=== PATIENT | female | born 1970 | race Caucasian/White ===

== ENCOUNTER 2018-03-13 05:19 | Observation (INO) ==
[2018-03-13] MEDS ORDERED: *HR* FentaNYL (PF) 100 MCG/2 ML VIAL ONE ×2 (06:13→07:58)
[2018-03-13] MEDS ORDERED: *HR* Propofol 200 MG/20 ML VIAL IVP ONE (06:13)
[2018-03-13] MEDS ORDERED: *HR* Midazolam HCl 2 MG/2 ML VIAL ONE (06:13)
[2018-03-13] MEDS ORDERED: *HR* Rocuronium Bromide 50 MG/5 ML VIAL ONE (06:17)
[2018-03-13] MEDS ORDERED: *HR* Succinylcholine 200 MG/10 ML VIAL IVP ONE (06:17)
[2018-03-13] MEDS ORDERED: Lidocaine -MPF 2% 2 ML VIAL ONE (06:17)
[2018-03-13] MEDS ORDERED: Albuterol 2.5 MG/3 ML NEBULIZER ONE (06:21)
[2018-03-13] MEDS ORDERED: Lidocaine -MPF 4% 5 ML AMPUL ONE (07:07)
[2018-03-13] MEDS ORDERED: Ondansetron 4 MG/2 ML VIAL ONE (07:56)
[2018-03-13] MEDS ORDERED: Dexamethasone 4 MG/ML VIAL ONE (07:56)
[2018-03-13] MEDS ORDERED: Neostigmine Methylsulfate 3 MG/3 ML SYRINGE ONE (08:04)
[2018-03-13] MEDS ORDERED: *HR* Morphine 10 MG/ML VIAL ONE (08:42)
[2018-03-13] MEDS ORDERED: *HR* OxyCODONE/APAP 7.5/325 TABLET PO PRN (12:00)
[2018-03-13] MEDS ORDERED: Ondansetron 4 MG/2 ML VIAL IVP PRN (12:00)
[2018-03-13] MEDS ORDERED: 0.9 % Sodium Chloride 1,000 ML IVC SCH (13:00)
--- NOTE | 2018-03-13 13:32 | Operative Note ---
Date of procedure: 03/13/18 Pre-op diagnosis: acute appendicitis Post-op diagnosis: same Procedure: Laparoscopic appendectomy [facility] Surgeon: Richie Nascimento Was there an travel assistant present: No Estimated blood loss (cc): 25 Specimen: appendix Condition: stable Disposition: PACU Procedure in Detail: Date of surgery: 03/13/18 After properly identifying the patient, the patient was brought to the operating room and placed in the supine position. After proper IV sedation was achieved followed by general endotracheal intubation, the patient's abdomen was prepped and draped in normal sterile fashion. A timeout was performed noting the patient's name and type of procedure to be performed. A 11 blade scalpel was used to make an effort umbilical incision down to the level of the rectus fascia. Once the rectus fascia was incised and the abdomen entered a 12 mm port was placed to the incision and the abdomen was insufflated with carbon dioxide. A laparoscopic camera was placed through the port which showed no injury to the intra-abdominal organs upon entry. A suprapubic 5 mm port in the left lower quadrant 5 mm port were then placed under direct camera visualization. The patient was placed in a Trendelenburg position with the left side down and the right lower quadrant was examined. The appendix appeared to be partially perforated with some exudate which was immediately suctioned. There was some significant inflammation near the right fallopian tube. This was bluntly dissected from its normal attachment and the appendix and cecum were retracted superiorly. There was significant inflammation CONSISTENT with perforated acute appendicitis. Portions of the epiploic tissue at the level of the cecum near the appendix were dissected to allow for visualization of the base of the appendix however the base of the appendix at the level or origin of the cecum appeared to have been obliterated. The appendix was then transected by transection across the mesentery at at the level of the appendix with a laparoscopic ELSY stapler. Because of an inability to find the true opening of the appendix but knowing where the base of the appendix was (the general area) a laparoscopic ELSY stapler was used to transect across the distal aspect of the cecum in this region. Portions of the cecum and the remnant of the appendix and epiploic tissue were then removed from the abdomen via an Endobag. The right lower quadrant and pelvis were copiously irrigated with normal saline solution and reinspection demonstrated presence of the fibrinous material along or near the level of the fallopian tube but no evidence of active bleeding. The staple line was intact. The decision was made to go ahead and conclude this surgical procedure by removing all ports after the abdomen was desufflated. The rectus fascia for the subumbilical incision was reapproximated with a 0 Vicryl suture. The subcutaneous tissue was reapproximated with a 3-0 Vicryl suture and the epidermal and dermal layers for the remaining incisions were closed with 4-0 Monocryl sutures. Needle, sponge, and instrument counts were correct 2 and the incisions were covered with Steri-Strips and Band-Aids. The patient was aroused from IV sedation, extubated in the operating room without complication, and transported to the recovery room stable condition.
[2018-03-13] MEDS: MORPHINE SUL Oral CONC 10 MG/0.5 ML ORAL.SYG SL PRN (14:40)
[2018-03-13] MEDS: 0.9 % Sodium Chloride 1,000 ML IVC SCH ×2 (14:44→19:45)
[2018-03-13] MEDS: Piperacillin/Tazobactam 3.375 GM in 0.9 % Sodium Chloride Mini Bag 100 ML IVPB SCH ×2 (14:44→20:44)
[2018-03-13] MEDS: Pantoprazole 40 MG VIAL IVP SCH (15:41)
[2018-03-13] MEDS: Ketorolac 30 MG/ML VIAL IVP SCH (18:41)
[2018-03-14] MEDS: Ketorolac 30 MG/ML VIAL IVP SCH ×3 (00:38→12:04)
[2018-03-14] MEDS: Piperacillin/Tazobactam 3.375 GM in 0.9 % Sodium Chloride Mini Bag 100 ML IVPB SCH ×2 (06:19→12:04)
[2018-03-14] MEDS: 0.9 % Sodium Chloride 1,000 ML IVC SCH (06:28)
[2018-03-14 07:48] LABS: Basophils % 0.2 %; Eosinophils # 0.1 K/mcL (0.0-0.6); Eosinophils % 0.4 %; Hematocrit 37.3 % (35.3-44.9); Hemoglobin 12.6 g/dL (11.5-15.4); Immature Granulocytes % 0.6 % (0-4); Lymphocytes # 2.4 K/mcL (0.6-4.6); Lymphocytes % 15.1 %; Mean Corpuscular HGB Conc 33.8 g/dL (31.6-35.5); Mean Corpuscular Hemoglobin 31.1 pg (28.0-33.3); Mean Corpuscular Volume 92.1 fL (83.0-100.0); Mean Platelet Volume 9.8 fL (9.4-12.4); Monocytes # 1.1 K/mcL (0.0-1.3); Monocytes % 6.8 %; Neutrophils # 12.2 K/mcL (1.6-8.9); Platelet Count 348 K/mcL (140-400); Red Blood Count 4.05 M/mcL (3.82-4.97); Red Cell Distribution Width 14.3 % (11.5-14.5); Segmented Neutrophils % 76.9 %
[2018-03-14 07:57] VITALS: BP 105/70
[2018-03-14 08:04] LABS: BUN/Creatinine Ratio 19 (6-26); Blood Urea Nitrogen 13 mg/dL (6-20); Carbon Dioxide 21 mEq/L (23-29); Chloride 109 mEq/L (98-107); Glucose 170 mg/dL (70-105); Osmolality,Calculated 284 (280-300); Potassium 3.6 mEq/L (3.5-5.1); Sodium 135 mEq/L (136-145); eGFR For African Americans > 60 (> 60); eGFR For Non-African Americans > 60 (> 60)
[2018-03-14] MEDS: MORPHINE SUL Oral CONC 10 MG/0.5 ML ORAL.SYG SL PRN (10:01)
[2018-03-14] MEDS: Pantoprazole 40 MG VIAL IVP SCH (10:01)
--- NOTE | 2018-03-14 12:25 | Discharge Summary ---
<Chepe Quach - Last Filed: 03/14/18 13:41> Date of Encounter: 03/14/18 Time of Encounter: 12:25 - Discharge Diagnosis (1) Acute appendicitis Priority: Primary Status: Acute Qualifiers: Acute appendicitis type: unspecified acute appendicitis type Qualified Code (s): K35.80 - Unspecified acute appendicitis General Surgery Exam Initial Vital Signs Temp Pulse Resp BP Pulse Ox 101.2 F H 100 16 101/57 93 03/13/18 15:20 03/13/18 15:20 03/13/18 15:20 03/13/18 15:20 03/13/18 15:20 - General physical appearance well developed, well nourished, no distress - Respiratory normal expansion, normal respiratory effort - Cardiovascular Cardiovascular exam: Present: RRR - Abdomen Abdomen general surgery: Present: bowel sounds present, soft, non tender Abdominal Tenderness: Present: RLQ - Neurologic Present: CN 2-12 grossly intact - Psychiatric Psychiatric general surgery: Present: A&Ox3, appropriate, oriented to person, oriented to place, oriented to time, speech is normal, memory intact - Hospital Course Hospital course: Ms. Melo is a 47 year old female - Time Spent with Patient Total time spent providing and/or coordinating discharge services: - Discharge Medications Prescriptions: Ciprofloxacin HCl [Cipro] 500 mg PO 1-2XD 7 Days #14 tablet metroNIDAZOLE [Flagyl] 500 mg PO QID 7 Days #28 tablet Oxycodone HCl/Acetaminophen [Percocet 5-325 mg Tablet] 1 each PO 1-2XD PRN 7 Days #10 tablet PRN Reason: Pain Home Medications: Levothyroxine [Synthroid] 50 mcg PO 0630 03/12/18 [History] Cholecalciferol (D-3) [Vitamin D] 1,000 unit PO DAILY 03/14/18 [History] Ciprofloxacin HCl [Cipro] 500 mg PO 1-2XD 7 Days #14 tablet 03/14/18 [Rx] Oxycodone HCl/Acetaminophen [Percocet 5-325 mg Tablet] 1 each PO 1-2XD PRN 7 Days #10 tablet 03/14/18 [Rx] Paroxetine HCl [Paxil] 40 mg PO HS 03/14/18 [History] Topiramate [Topamax] 100 mg PO BID 03/14/18 [History] metroNIDAZOLE [Flagyl] 500 mg PO QID 7 Days #28 tablet 03/14/18 [Rx] Allergies/Adverse Reactions: 3 Allergy/AdvReac Type Severity Reaction Status Date / Time phenazopyridine AdvReac See Verified 03/12/18 23:55 [From Pyridium] Comments sulfamethoxazole AdvReac See Verified 03/12/18 23:55 [From Bactrim] Comments trimethoprim [From Bactrim] AdvReac See Verified 03/12/18 23:55 Comments Date of admission: 03/13/18 12:23 Primary care physician: Argelia Brody CNP Labs on day of discharge: Labs from last 24 hours 03/14/18 03/14/18 07:02 07:02 WBC 15.9 H RBC 4.05 Hgb 12.6 D Hct 37.3 MCV 92.1 MCH 31.1 MCHC 33.8 RDW 14.3 Plt Count 348 MPV 9.8 Immature Gran % 0.6 Seg Neutrophils % 76.9 Lymphocytes % 15.1 Monocytes % 6.8 Eosinophils % 0.4 Basophils % 0.2 Neutrophils # 12.2 H Lymphocytes # 2.4 Monocytes # 1.1 Eosinophils # 0.1 Basophils # 0.0 Sodium 135 L Potassium 3.6 Chloride 109 H Carbon Dioxide 21 L BUN 13 Creatinine 0.70 Est GFR ( Amer) > 60 Est GFR (Non-Af Amer) > 60 BUN/Creatinine Ratio 19 Glucose 170 H Calculated Osmolality 284 Calcium 8.0 L - Patient Status Disposition: Home, Self-Care Condition: Good Functional capacity at discharge: independent ambulation Overall status at discharge: patient is progressing back to baseline - Discharge Instructions Follow Up With: Argelai Brody CNP [Primary Care Provider] - Additional Instructions: Follow up with Dr. Nascimento in outpatient setting in 2 weeks. - Diet and Activity Activity: increase activity as tolerated Diet: advance to your usual diet <Chase Beck T - Last Filed: 03/14/18 15:04> Date of Encounter: 03/14/18 General Surgery Exam Initial Vital Signs Temp Pulse Resp BP Pulse Ox 101.2 F H 100 16 101/57 93 03/13/18 15:20 03/13/18 15:20 03/13/18 15:20 03/13/18 15:20 03/13/18 15:20 - Hospital Course Hospital course: Ms. Melo is a 47 year old female - Time Spent with Patient Total time spent providing and/or coordinating discharge services: Date of admission: 03/13/18 12:23 Primary care physician: Argelia Brody CNP Labs on day of discharge: Labs from last 24 hours 03/14/18 03/14/18 07:02 07:02 WBC 15.9 H RBC 4.05 Hgb 12.6 D Hct 37.3 MCV 92.1 MCH 31.1 MCHC 33.8 RDW 14.3 Plt Count 348 MPV 9.8 Immature Gran % 0.6 Seg Neutrophils % 76.9 Lymphocytes % 15.1 Monocytes % 6.8 Eosinophils % 0.4 Basophils % 0.2 Neutrophils # 12.2 H Lymphocytes # 2.4 Monocytes # 1.1 Eosinophils # 0.1 Basophils # 0.0 Sodium 135 L Potassium 3.6 Chloride 109 H Carbon Dioxide 21 L BUN 13 Creatinine 0.70 Est GFR ( Amer) > 60 Est GFR (Non-Af Amer) > 60 BUN/Creatinine Ratio 19 Glucose 170 H Calculated Osmolality 284 Calcium 8.0 L - Attending Attestation I examined this patient and my medical decision-making was reviewed with the Resident Physician. I agree with the documented findings, disposition and treatment plan as described except to the extent set forth below. The patient is seen and evaluated on morning rounds with the resident. She tolerated to a portion of her regular diet did not having nausea or vomiting. She is ambulating around her room. She feels well wants to go home. I think it is reasonable to discharge her to home with 7 days of oral antibiotics. We will use Flagyl and ciprofloxacin. Follow-up with clinical nurse practitioner next week. Chase Beck MD FACS
== END 2018-03-14 15:45 | disposition home or self-care (01) ==
LOC: EMEROO 05:19 → 3ANU 05:19
PROVIDERS: ADMIT Surgery; ATTEND Surgery